=== PATIENT | female | born 1995 | race Caucasian/White ===

== ENCOUNTER 2017-10-08 10:39 | Emergency (ER) | payer OTHER ==
[~2017-10-08] VITALS: Ht 167.6 cm; Wt 82.6 kg
== END 2017-10-08 16:16 | disposition home or self-care (01) ==
LOC: ER 10:39
DX: N39.0 Urinary tract infection, site not specified (principal)

== ENCOUNTER 2017-10-08 21:08 | Emergency (ER) | payer OTHER ==
[~2017-10-08] VITALS: Ht 167.6 cm; Wt 81.6 kg
== END 2017-10-08 23:28 | disposition home or self-care (01) ==
LOC: ER 21:08
DX: B95.2 Enterococcus as the cause of diseases classified elsewhere (principal); N39.0 Urinary tract infection, site not specified; R11.2 Nausea with vomiting, unspecified